=== PATIENT | female | born 1960 ===

== ENCOUNTER 2023-05-25 06:00 | Outpatient (RCR) | payer BC, MEDICAID, SELFPAY | END 2023-05-25 23:59 | disposition home or self-care (01) | LOC: MPT 06:00 | PROVIDERS: Visit Provider Orthopaedic Surgery Sports Medicine | DX: S42.201D Unspecified fracture of upper end of right humerus, subsequent encounter for fracture with routine healing (principal); X58.XXXD Exposure to other specified factors, subsequent encounter | CPT/HCPCS: 97110; 97161 ==